=== PATIENT | male | born 1975 | race Caucasian/White ===

== ENCOUNTER 2019-05-20 08:50 | Day surgery (SDC) | payer BC ==
--- NOTE | 2019-05-20 07:55 | HP ---
DATE OF SURGERY: 05/20/2019 HISTORY OF PRESENT ILLNESS: The patient is a 43 year-old with no bloody stools, no change in bowel movements. He has history of polyps. Family history of colon cancer. He is in need of follow up screening colonoscopy. PAST MEDICAL HISTORY: Reflux. PAST SURGICAL HISTORY: Colonoscopy in the past. MEDICATIONS: Nexium. ALLERGIES: SULFA. FAMILY HISTORY: Diabetes, hypertension, colon cancer. SOCIAL HISTORY: He chews half a can per day, occasional alcohol use denies abuse. REVIEW OF SYSTEMS: Fourteen systems reviewed. No chest pain or palpitations. Otherwise as noted per admission assessment. PHYSICAL EXAMINATION: GENERAL: No acute distress. HEENT: Sclerae nonicteric. NECK: No JVD. CHEST: Equal excursion, nonlabored breathing. CVS: Regular rate and rhythm. ABDOMEN: Soft, nontender. No peritoneal signs. EXTREMITIES: No significant edema. NEURO: Alert, oriented, moving extremities symmetrically. No gross motor deficits noted. RECTAL: Deferred timed to endoscopy exam. IMPRESSION: History of polyps, family history of colon cancer, in need of screening colonoscopy. Risks and benefits explained in detail including but not limited to bleeding or infection, risk of bowel injury or perforation possibly requiring open procedure, risk of missed or nondiagnosis or incomplete exam possibly requiring barium enema, other studies or procedures, general risk of anesthesia or sedation, risk of bowel prep but not limited to. Consent was obtained, will proceed with outpatient follow up screening colonoscopy given his history of polyps and family history of colon cancer.
[2019-05-20] MEDS ORDERED: Lactated Ringers 1,000 ML IV SCH (09:30)
[2019-05-20] MEDS ORDERED: Ketamine HCl 50 MG/ML ONE (10:42)
[2019-05-20] MEDS ORDERED: DIPRIVAN 200 MG/20 ML IV ONE ×2 (10:42→10:52)
[2019-05-20 11:53] VITALS: PULSE 66; O2SAT 96
[2019-05-20 12:32] VITALS: BP 135/71
--- NOTE | 2019-05-21 12:11 | OP ---
SURGERY DATE/TIME: 05/20/2019 1049 PREOPERATIVE DIAGNOSIS: History of polyps, family history of colon cancer, need for follow up screening colonoscopy. POSTOPERATIVE DIAGNOSES: 1) Small polyp rectosigmoid. 2) Fair bowel prep. 3) Diverticulosis. 4) Small internal and external hemorrhoids. PROCEDURES: 1) Colonoscopy to terminal ileum. 2) Retrograde ileoscopy. 3) Hot biopsy rectosigmoid colon, small polyp removed biopsy forceps. 4) Withdrawal time 8 minutes. SURGEON: Dr. Sriram Montes. ANESTHESIA: MAC. ESTIMATED BLOOD LOSS: Minimal. INDICATIONS: As noted above. Risks and benefits explained in detail but not limited to and consent obtained. DESCRIPTION OF PROCEDURE AND FINDINGS: The patient is taken to the operating room. MAC anesthesia introduced. After official time out and no disagreement with planned procedure, digital rectal exam did not reveal any rectal masses. He did have some small internal and external hemorrhoids. Video colonoscope inserted and passed up through the slightly tortuous sigmoid, descending, transverse, ascending colon around to cecum. Appendiceal orifice is well visualized. The scope was able to be passed up the terminal ileum. Retrograde ileoscopy performed which was grossly unremarkable. The scope is slowly and carefully withdrawn over the next eight minutes. Prep overall was fair. There were no signs of any large polyps, masses or obstructing lesions. Back to the rectosigmoid colon about 20 cm or so was noted a very small 3.5 mm polyp versus hyperplastic polyp removed with hot biopsy forceps with brief bursts of cautery. Good hemostasis noted. Otherwise he had some mild diverticulosis. He had some small internal and external hemorrhoids. There were no signs of any large polyps, masses or obstructing lesions. I will see him back in the office next week or two to go over the biopsy results to determine ultimate follow up recommendations.
== END 2019-05-20 12:34 | disposition home or self-care (01) ==
LOC: SDC 08:50
PROVIDERS: ATTEND Surgery
DX: Z12.11 Encounter for screening for malignant neoplasm of colon (principal); K63.5 Polyp of colon; K62.1 Rectal polyp; Z86.010 Personal history of colon polyps; Z80.0 Family history of malignant neoplasm of digestive organs; K57.30 Diverticulosis of large intestine without perforation or abscess without bleeding; K64.4 Residual hemorrhoidal skin tags; K64.8 Other hemorrhoids
CPT/HCPCS: 88305; J2704

== ENCOUNTER 2019-12-05 23:22 | Emergency (ER) | payer BC ==
[2019-12-05] MEDS ORDERED: TORAdol 30 mg Injection IV ONE (23:46)
[2019-12-05] MEDS ORDERED: Compazine 10 MG/2 ML IV ONE (23:46)
--- NOTE | 2019-12-05 23:46 | ERPHSYRPT ---
- History of Present Illness Time Seen by Provider: 12/05/19 23:40 Source: patient Exam Limitations: no limitations Physician History: Patient is a 44-year-old male who presents to our ED with a headache for 4 days. Patient has been taking [id number] analgesics with no relief. Patient states that his blood pressure today was 166/98. Patient became very concerned and presented to our ED. He took aspirin approximately 2 hours prior to arrival. Patient also took Nexium. No other medications were ingested. Patient is not a smoker. However he chews tobacco. Patient states he is otherwise healthy. He does not follow-up with primary care doctor regularly. No associated chest pain or shortness of breath. No nausea vomiting or diaphoresis. Patient admits to chronic neck pain due to degenerative arthritis of the cervical spine. Patient advises that his orthopedic doctor advised neck surgery but patient declined. Patient attributes his intermittent headaches to his neck pain. Patient states when his chronic neck pain flares up his headaches tend to get worse. No associated numbness tingling or weakness. Patient voices no other complaints concerns at this time. Timing/Duration: day(s) (Days ago.) Quality: aching Head Pain Location: global Severity of Pain-Max: moderate Severity of Pain-Current: mild Recent Head Trauma: no recent headache/trauma, occasional headaches Modifying Factors: Improves With: rest, noise Associated Symptoms: neck pain, numbness in legs/feet, No confusion, No dizziness, No fatigue, No facial pain, No fever/chills, No flushing, No light- headedness, No nausea/vomiting, No nasal congestion, No nasal drainage, No rash, No sweating, No scotoma, No seizures, No sinus infection, No sensitive to light, No speech problems, No stiff neck, No trouble walking, No vision changes, No visual disturbance, No weakness Previous symptoms: same symptoms as today Allergies/Adverse Reactions: Sulfa (Sulfonamide Antibiotics) Allergy (Mild, Verified 12/05/19 23:31) Hives Home Medications: Esomeprazole Magnesium [Nexium] 40 mg PO DAILY 03/06/14 [History] Aspirin 81 mg PO DAILY 12/05/19 [History] Hx Tetanus, Diphtheria Vaccination/Date Given: No Hx Influenza Vaccination/Date Given: (fall 2013) Hx Pneumococcal Vaccination/Date Given: No - Review of Systems Constitutional: No Symptoms, No Fever, No Chills Eyes: No Symptoms Ears, Nose, & Throat: No Symptoms Respiratory: No Symptoms, No Cough, No Dyspnea Cardiac: No Symptoms, No Chest Pain, No Edema, No Syncope Abdominal/Gastrointestinal: No Symptoms, No Abdominal Pain, No Nausea, No Vomiting, No Diarrhea Genitourinary Symptoms: No Symptoms, No Dysuria Musculoskeletal: No Symptoms, No Back Pain, No Neck Pain Skin: No Symptoms, No Rash Neurological: No Symptoms, No Dizziness, No Focal Weakness, No Sensory Changes Psychological: No Symptoms Endocrine: No Symptoms Hematologic/Lymphatic: No Symptoms Immunological/Allergic: No Symptoms All Other Systems: Reviewed and Negative - Past Medical History Pertinent Past Medical History: Yes Neurological History: No Pertinent History ENT History: No Pertinent History Cardiac History: No Pertinent History Respiratory History: Asthma Endocrine Medical History: No Pertinent History Musculoskeletal History: No Pertinent History GI Medical History: GERD, Polyps History: No Pertinent History Psycho-Social History: No Pertinent History Male Reproductive Disorders: No Pertinent History - Past Surgical History Past Surgical History: Yes Neuro Surgical History: No Pertinent History Cardiac: No Pertinent History Respiratory: No Pertinent History Gastrointestinal: Other Genitourinary: No Pertinent History Musculoskeletal: No Pertinent History Male Surgical History: No Pertinent History Other Surgical History: colonoscopy - Social History Smoking Status: Former smoker How long have you smoked: 10 Exposure to second hand smoke: No Drug Use: none Patient Lives Alone: No - Nursing Vital Signs Nursing Vital Signs: Initial Vital Signs Temperature 98.3 F 12/05/19 23:37 Pulse Rate 86 12/05/19 23:37 Respiratory Rate 22 12/05/19 23:37 Blood Pressure 180/117 12/05/19 23:37 O2 Sat by Pulse Oximetry 99 12/05/19 23:37 Pain Scale Pain Intensity 0 - Physical Exam General Appearance: no apparent distress Eye Exam: PERRL/EOMI Ears, Nose, Throat Exam: normal ENT inspection, moist mucous membranes Neck Exam: normal inspection, supple, full range of motion, No meningismus Respiratory Exam: normal breath sounds, lungs clear Cardiovascular Exam: regular rate/rhythm, normal heart sounds Gastrointestinal/Abdominal Exam: soft, No tenderness, No distention Back Exam: normal inspection, normal range of motion Extremity Exam: normal inspection, normal range of motion Mental Status Exam: alert, oriented x 3, 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 Exam: normal speech, PERRL, No facial droop Coordination/Gait Exam: normal finger to nose, normal gait, normal cerebellar function, negative Romberg's sign, No abnormal gait, No ABN nose to finger (R) Motor/Sensory Exam: no motor deficit, no sensory deficit, no pronator drift Skin Exam: normal color, warm, dry, No rash SpO2 Interpretation: normal SpO2: 99 O2 Delivery: Room Air - Course Nursing assessment & vital signs reviewed: Yes EKG Interpreted by Me: RATE (82), Sinus Rhythm, NORMAL AXIS, NORMAL INTERVALS Ordered Tests: Active Orders 24 hr Category Date Time Status 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 Care 12/05/19 23:43 Active EKG-ER Only STAT Care 12/05/19 23:42 Active IV Insertion STAT Care 12/05/19 23:42 Active Pulse Oximetry (ED) STAT Care 12/05/19 23:42 Active CBC W DIFF Stat Lab 12/05/19 23:40 Completed CMP Stat Lab 12/05/19 23:40 Completed MAGNESIUM Stat Lab 12/05/19 23:40 Completed TROPONIN Q3H Lab 12/05/19 23:40 Completed TROPONIN Q3H Lab 12/06/19 02:45 Ordered TROPONIN Q3H Lab 12/06/19 05:45 Ordered TROPONIN Q3H Lab 12/06/19 08:45 Ordered TROPONIN Q3H Lab 12/06/19 11:45 Ordered Urine Triage Profile Stat Lab 12/05/19 23:40 Completed Medication Summary Discontinued Medications Generic Name Dose Route Start Last Admin Trade Name Freq PRN Reason Stop Dose Admin Ketorolac Tromethamine 30 mg 12/05/19 23:46 12/05/19 23:53 Toradol 30 Mg Injection IV 12/05/19 23:47 30 mg STAT ONE Administration Ketorolac Tromethamine Confirm 12/05/19 23:52 Toradol 30 Mg Injection Administered 12/05/19 23:53 Dose 30 mg .ROUTE .STK-MED ONE Prochlorperazine Edisylate 10 mg 12/05/19 23:46 12/05/19 23:53 Compazine 10 Mg/2 Ml IV 12/05/19 23:47 10 mg STAT ONE Administration Prochlorperazine Edisylate Confirm 12/05/19 23:52 Compazine 10 Mg/2 Ml Administered 12/05/19 23:53 Dose 10 mg .ROUTE .STK-MED ONE Lab/Rad Data: Laboratory Result Diagrams 12/05/19 23:40 12/05/19 23:40 Laboratory Results 12/05/19 12/05/19 12/05/19 Range/Units 23:40 23:40 23:40 WBC (4.0-10.5) K/mm3 RBC (4.1-5.6) M/mm3 Hgb (12.5-18.0) gm/dl Hct (42-50) % MCV (78-100) fl MCH (26-32) pg MCHC (32-36) g/dl RDW (11.5-14.0) % Plt Count (150-450) K/mm3 MPV (7.5-11.0) fl Gran % (36.0-66.0) % Eos # (Auto) (0-0.5) Absolute Lymphs (auto) (1.0-4.6) Absolute Monos (auto) (0.0-1.3) Lymphocytes % (24.0-44.0) % Monocytes % (0.0-12.0) % Eosinophils % (0.00-5.0) % Basophils % (0.0-0.4) % Absolute Granulocytes (1.4-6.9) Basophils # (0-0.4) Sodium 141 (137-145) mmol/L Potassium 3.6 (3.5-5.1) mmol/L Chloride 104 (98-107) mmol/L Carbon Dioxide 28 (22-30) mmol/L Anion Gap 12.7 (5-15) MEQ/L BUN 16 (9-20) mg/dL Creatinine 0.99 (0.66-1.25) mg/dL Estimated GFR > 60.0 ML/MIN Glucose 104 (74-106) mg/dL Calcium 9.5 (8.4-10.2) mg/dL Magnesium 2.2 (1.6-2.3) mg/dL Total Bilirubin 0.70 (0.2-1.3) mg/dL AST 37 (17-59) U/L ALT 41 (0-50) U/L Alkaline Phosphatase 73 (38-126) U/L Troponin I < 0.012 (0.000-0.034) ng/mL Serum Total Protein 7.6 (6.3-8.2) g/dL Albumin 4.5 (3.5-5.0) g/dL Urine Opiates Level NEGATIVE (NEGATIVE) Ur Methadone NEGATIVE (NEGATIVE) Urine Barbiturates NEGATIVE (NEGATIVE) Ur Phencyclidine (PCP) NEGATIVE (NEGATIVE) Urine Amphetamine NEGATIVE (NEGATIVE) U Benzodiazepine Level NEGATIVE (NEGATIVE) Urine Cocaine NEGATIVE (NEGATIVE) Urine Marijuana (THC) NEGATIVE (NEGATIVE) 12/05/19 Range/Units 23:40 WBC 7.5 (4.0-10.5) K/mm3 RBC 4.69 (4.1-5.6) M/mm3 Hgb 15.2 (12.5-18.0) gm/dl Hct 45.4 (42-50) % MCV 96.8 (78-100) fl MCH 32.4 H (26-32) pg MCHC 33.5 (32-36) g/dl RDW 12.9 (11.5-14.0) % Plt Count 194 (150-450) K/mm3 MPV 10.3 (7.5-11.0) fl Gran % 52.0 (36.0-66.0) % Eos # (Auto) 0.20 (0-0.5) Absolute Lymphs (auto) 2.49 (1.0-4.6) Absolute Monos (auto) 0.86 (0.0-1.3) Lymphocytes % 33.4 (24.0-44.0) % Monocytes % 11.5 (0.0-12.0) % Eosinophils % 2.7 (0.00-5.0) % Basophils % 0.4 (0.0-0.4) % Absolute Granulocytes 3.87 (1.4-6.9) Basophils # 0.03 (0-0.4) Sodium (137-145) mmol/L Potassium (3.5-5.1) mmol/L Chloride (98-107) mmol/L Carbon Dioxide (22-30) mmol/L Anion Gap (5-15) MEQ/L BUN (9-20) mg/dL Creatinine (0.66-1.25) mg/dL Estimated GFR ML/MIN Glucose (74-106) mg/dL Calcium (8.4-10.2) mg/dL Magnesium (1.6-2.3) mg/dL Total Bilirubin (0.2-1.3) mg/dL AST (17-59) U/L ALT (0-50) U/L Alkaline Phosphatase (38-126) U/L Troponin I (0.000-0.034) ng/mL Serum Total Protein (6.3-8.2) g/dL Albumin (3.5-5.0) g/dL Urine Opiates Level (NEGATIVE) Ur Methadone (NEGATIVE) Urine Barbiturates (NEGATIVE) Ur Phencyclidine (PCP) (NEGATIVE) Urine Amphetamine (NEGATIVE) U Benzodiazepine Level (NEGATIVE) Urine Cocaine (NEGATIVE) Urine Marijuana (THC) (NEGATIVE) - Progress Progress: improved Progress Note: 12/06/19 00:37 Patient reassessed. Headache resolved. Lab work-up negative. No evidence of endorgan damage. Repeat neuro exam within normal limits. Vitals stable. Blood pressure improved down to 152/94. Patient states is ready for discharge. No indication for further work-up at this time. Will discharge home. Patient agrees to follow-up with his primary care doctor within 48 hours for reevaluation. Blood Culture(s) Obtained: No Antibiotics given: No Counseled pt/family regarding: lab results, diagnosis, need for follow-up - Departure Departure Disposition: Home Clinical Impression: Hypertension, Headache Condition: Stable Critical Care Time: No Referrals: JANICE REDDY [Primary Care Provider] - Additional Instructions: Discharge/Care Plan CECIL ALMONTE was seen on 12/06/19 in the Emergency Room. The patient was counseled regarding Diagnosis,Lab results, Imaging studies, need for follow up and when to return to the Emergency Room. Prescriptions given: Discharge Note I have spoken with the patient and/or caregivers. I have explained the patient's condition, diagnosis and treatment plan based on the information available to me at this time. I have answered the patient's and/or caregiver's questions and addressed any concerns. The patient and/or caregivers have as good understanding of the patient's diagnosis, condition and treatment plan as can be expected at this point. The vital signs have been stable. The patient's condition is stable and appropriate for discharge from the emergency department. The patient will pursue further outpatient evaluation with the primary care physician or other designated or consulting physician as outlined in the discharge instructions. The patient and/or caregivers are agreeable to this plan of care and follow-up instructions have been explained in detail. The patient and/or caregivers have received these instruction. The patient/and or caregivers are aware that any significant change in condition or worsening of symptoms should prompt an immediate return to this or the closest emergency department or call 911.
[2019-12-05] MEDS ORDERED: Compazine 10 MG/2 ML ONE (23:52)
[2019-12-05] MEDS ORDERED: TORAdol 30 mg Injection ONE (23:52)
[2019-12-05 23:57] LABS: Absolute Neutrophil Ct (ANC) 3.87 (1.4-6.9); BASOPHIL % 0.4 % (0.0-0.4); Basophil (Absolute #) 0.03 (0-0.4); Eosinophil % 2.7 % (0.00-5.0); Hematocrit 45.4 % (42-50); Hemoglobin 15.2 gm/dl (12.5-18.0); Lymphocyte (Absolute #) 2.49 (1.0-4.6); Lymphocytes % 33.4 % (24.0-44.0); Mean Cell Volume 96.8 fl (78-100); Mean Corpuscular Hemoglobin 32.4 pg (26-32); Mean Corpuscular Hgb Concent. 33.5 g/dl (32-36); Mean Platelet Volume 10.3 fl (7.5-11.0); Monocyte (Absolute #) 0.86 (0.0-1.3); Monocytes % 11.5 % (0.0-12.0); Platelet Count 194 K/mm3 (150-450); Red Blood Count 4.69 M/mm3 (4.1-5.6); Red Cell Distribution Width 12.9 % (11.5-14.0); White Blood Count 7.5 K/mm3 (4.0-10.5)
[2019-12-06 00:08] LABS: ALBUMIN 4.5 g/dL (3.5-5.0); ALKALINE PHOSPHATASE 73 U/L (38-126); ANION GAP 12.7 MEQ/L (5-15); BLOOD UREA NITROGEN 16 mg/dL (9-20); CHLORIDE 104 mmol/L (98-107); Calcium 9.5 mg/dL (8.4-10.2); Carbon Dioxide 28 mmol/L (22-30); Creatinine 1 0.99 mg/dL (0.66-1.25); EST GLOMERULAR FILTRATION RATE > 60.0 ML/MIN; Glucose 104 mg/dL (74-106); MAGNESIUM 2.2 mg/dL (1.6-2.3); Potassium 3.6 mmol/L (3.5-5.1); SGOT/AST 37 U/L (17-59); SGPT/ALT 41 U/L (0-50); SODIUM 141 mmol/L (137-145); Total Protein 7.6 g/dL (6.3-8.2)
[2019-12-06 00:14] LABS: Amphetamine,Urine NEGATIVE (NEGATIVE); Barbiturate,Urine NEGATIVE (NEGATIVE); Benzodiazepine,Urine NEGATIVE (NEGATIVE); Cocaine,Urine NEGATIVE (NEGATIVE); Methadone,Urine NEGATIVE (NEGATIVE); Opiate,Urine NEGATIVE (NEGATIVE); PCP,Urine NEGATIVE (NEGATIVE); THC,Urine NEGATIVE (NEGATIVE)
[2019-12-06 00:45] VITALS: BP 133/85; PULSE 80; O2SAT 96
== END 2019-12-06 00:56 | disposition home or self-care (01) ==
LOC: ED 23:22
DX: R51 Headache (principal); I10 Essential (primary) hypertension
CPT/HCPCS: 36000; 36415; 80053; 80307; 83735; 84484; 85025; 93005; 93041; 94760; 96374; 99284; J1885

== ENCOUNTER 2022-07-18 11:32 | Day surgery (SDC) | payer BC ==
--- NOTE | 2022-07-18 09:57 | HP ---
DATE OF SURGERY: 07/18/2022 HISTORY OF PRESENT ILLNESS: A 47-year-old has a history of polyps, last colonoscopy three years ago had some dark stools and epigastric pain. He also needs upper endoscopy to evaluate for gastritis or peptic ulcer disease. PAST MEDICAL HISTORY: Hypertension. Polyps and ulcers in the past. Gastroesophageal reflux disease. Headaches. Heartburn. PAST SURGICAL HISTORY: Colonoscopy. MEDICATIONS: Allopurinol, lisinopril. ALLERGIES: SULFA. FAMILY HISTORY: Father with colon cancer. Negative for esophageal cancer. SOCIAL HISTORY: Chews tobacco. He denies smoking. Occasional alcohol use. REVIEW OF SYSTEMS: Fourteen systems reviewed. No chest pain or palpitations. Other systems negative or noncontributory as above and per preadmission questionnaire. PHYSICAL EXAMINATION: Height 6'1". BMI 42.54. Weight 230 pounds. GENERAL: No acute distress. HEENT: Sclerae nonicteric. NECK: No JVD. CHEST: Equal excursion, nonlabored breathing. CVS: Regular rate and rhythm. ABDOMEN: Soft. No peritoneal signs. EXTREMITIES: No cyanosis. No edema. NEURO: Alert, oriented, moving extremities symmetrically. RECTAL: Deferred timed to endoscopy exam. PSYCH: Appropriate mood and affect. SKIN: Dry. IMPRESSION: History of polyps needs follow up screening colonoscopy as there is question of epigastric pain also needs EGD to rule out peptic ulcer disease, gastritis or other etiology. Risks and benefits explained in detail including but not limited to bleeding or infection, risk of bowel injury or perforation possibly requiring other studies or procedures, risk of missed or nondiagnosis or incomplete exam possibly requiring barium enema other studies or procedures, general risk of anesthesia or sedation, risk of bowel prep but not limited to. Consent obtained. Will proceed with EGD and colonoscopy as an outpatient.
[2022-07-18] MEDS ORDERED: Lactated Ringers 1,000 ML IV SCH (12:30)
[2022-07-18] MEDS ORDERED: Versed 2 MG/2 ML Injection ONE (13:45)
[2022-07-18] MEDS ORDERED: DIPRIVAN 200 MG/20 ML IV ONE (13:45)
[2022-07-18] MEDS ORDERED: Xylocaine-Mpf 2% 5 Ml Vial ONE (13:45)
[2022-07-18 13:48] VITALS: BP 137/81; PULSE 75; O2SAT 96
--- NOTE | 2022-07-18 15:31 | OP ---
SURGERY DATE/TIME: 07/18/2022 1246 PREOPERATIVE DIAGNOSES: 1) Polyp, need for screening colonoscopy. 2) History of some epigastric pain and dark stools, need for upper endoscopy to evaluate for gastritis, peptic ulcer disease. POSTOPERATIVE DIAGNOSES: 1) ASA Class II. 2) Mild prepyloric ulcer. 3) Mild gastritis. 4) Borderline early inflammation distal esophagus at the gastroesophageal junction versus normal variation. 5) Diverticulosis. 6) Small early polyp versus hyperplastic lesion sigmoid colon and transverse colon. 7) Good bowel prep. PROCEDURES: 1) EGD with cold biopsy of antrum to evaluate for Helicobacter pylori. 2) Cold biopsy distal esophagus at the gastroesophageal junction. 3) Colonoscopy to cecum. 4) Hot biopsy polypectomy small transverse colon early polyp versus hyperplastic lesion. 5) Hot biopsy polypectomy small sigmoid colon early polyp versus hyperplastic lesion. SURGEON: Dr. Sriram Montes. ANESTHESIA: MAC. ESTIMATED BLOOD LOSS: Minimal. INDICATIONS: As noted above. Risks and benefits explained in detail and not limited to and consent obtained. DESCRIPTION OF PROCEDURE AND FINDINGS: The patient is taken to the operating room. MAC anesthesia introduced. After official time out and no disagreement with planned procedure, bite block positioned. Video gastroscope easily passed down the esophagus to the patent pylorus to the third portion of the duodenum. Third, second and first portions of duodenum fairly unremarkable. No signs of any ulcers or inflammation. Back in the stomach he did have some gastritis. There was a small ulcer in the prepyloric area. A cold biopsy is taken to evaluate for Helicobacter pylori. Good hemostasis noted. On retroflex the gastroesophageal junction snug against the scope. The scope is straightened. The gastroesophageal junction about 40 cm. There was just a little borderline plus or minus early inflammation in distal esophagus gastroesophageal junction possible early esophagitis versus normal variation. Cold biopsy is taken from both the stomach and distal esophagus. The scope is withdrawn. The remainder of the esophagus grossly unremarkable. The patient tolerated this part of the procedure well. There were no immediate complications. It was felt his epigastric pain likely had been from the gastritis and small ulcer. A script for Protonix was given to the patient. Attention is then turned to colonoscopy. Digital rectal exam did not reveal any rectal masses. Video colonoscope inserted and passed up the tortuous sigmoid, descending, transverse, ascending colon around to the cecum. Appendiceal orifice and valve well visualized and photo documented. Prep overall was good, a little bit of some liquidy stool suctioned and irrigated as clear as possible. The scope is slowly and carefully withdrawn over the next nine minutes. No signs of any large polyps, masses or obstructing lesions. There was a small early polyp in the distal transverse colon removed with hot biopsy polypectomy. Good hemostasis noted. Otherwise he had some left colon small diverticula. He did have small early polyp versus hyperplastic lesion in the sigmoid colon removed with hot biopsy polypectomy. Good hemostasis noted. The scope is withdrawn. He tolerated the procedure well. There were no immediate complications. There was no family available to discuss the findings with at this time.
== END 2022-07-18 12:50 | disposition home or self-care (01) ==
LOC: SDC 11:32
PROVIDERS: ATTEND Surgery
DX: Z09 Encounter for follow-up examination after completed treatment for conditions other than malignant neoplasm (principal); Z86.010 Personal history of colon polyps; R10.13 Epigastric pain; K92.1 Melena; D12.5 Benign neoplasm of sigmoid colon; D12.3 Benign neoplasm of transverse colon; K25.9 Gastric ulcer, unspecified as acute or chronic, without hemorrhage or perforation; K29.70 Gastritis, unspecified, without bleeding; K57.30 Diverticulosis of large intestine without perforation or abscess without bleeding; K20.90 Esophagitis, unspecified without bleeding
CPT/HCPCS: 88305; J2250; J2704

== ENCOUNTER 2022-10-03 09:08 | Day surgery (SDC) | payer BC ==
--- NOTE | 2022-10-03 08:10 | HP ---
DATE OF SURGERY: 10/03/2022 HISTORY OF PRESENT ILLNESS: The patient is a 47-year-old had polyps in the past, had some dark stools and epigastric pain in the past. He is need of EGD and colonoscopy. Family history his father had colon cancer. PAST MEDICAL HISTORY: Hypertension, migraine headache, hemorrhoid, ulcer and gout in the past. PAST SURGICAL HISTORY: Colonoscopy. MEDICATIONS: Allopurinol, lisinopril. ALLERGIES: SULFA. FAMILY HISTORY: Colon cancer. SOCIAL HISTORY: No smoking. Occasional alcohol use. REVIEW OF SYSTEMS: Fourteen systems reviewed. No chest pain or palpitations. Other systems negative or noncontributory as above and per preadmission questionnaire. PHYSICAL EXAMINATION: VITALS: Height 6'1". BMI 43.5. GENERAL: No acute distress. HEENT: Sclerae nonicteric. EOMI. Oropharynx mucous membranes moist. NECK: No JVD. CHEST: Equal excursion, nonlabored breathing. CVS: Regular rate and rhythm. ABDOMEN: Soft. Mild tenderness epigastrium. No peritoneal signs. EXTREMITIES: No cyanosis. NEURO: Alert, oriented, moving extremities symmetrically. RECTAL: Deferred timed to endoscopy exam. PSYCH: Appropriate mood and affect. SKIN: Dry. IMPRESSION: History of polyps. He is in need of follow up screening colonoscopy. Question of melena and epigastric pain. He also needs upper endoscopy to rule out peptic ulcer disease, gastritis or other etiology. He was shown the risk sheet, explained the procedure in detail but not limited to bleeding or infection, risk of bowel injury or perforation, risk of missed or nondiagnosis or incomplete exam, possibly requiring barium enema, barium swallow, other studies or procedures. General risk of anesthesia or sedation, risk of bowel prep but not limited to, consent obtained. Will proceed with outpatient EGD and colonoscopy.
[~2022-10-03 09:08] MED LIST: Lactated Ringers 1,000 ML IV SCH
[2022-10-03 09:35] VITALS: O2SAT 96
[2022-10-03] MEDS ORDERED: Lactated Ringers 1,000 ML IV ONE (09:44)
[2022-10-03] MEDS ORDERED: Versed 2 MG/2 ML Injection ONE (11:26)
[2022-10-03] MEDS ORDERED: Xylocaine-Mpf 2% 5 Ml Vial ONE (11:26)
[2022-10-03] MEDS ORDERED: DIPRIVAN 200 MG/20 ML IV ONE (11:26)
[2022-10-03 12:24] VITALS: BP 152/98; PULSE 60
--- NOTE | 2022-10-04 07:44 | OP ---
SURGERY DATE/TIME: 10/03/2022 1129 PREOPERATIVE DIAGNOSIS: Prior peptic ulcer needs follow up to evaluate for healing. POSTOPERATIVE DIAGNOSES: 1) Healed ulcer area. 2) Minimal to mild gastritis. PROCEDURES: 1) EGD with cold biopsy of antrum to evaluate for Helicobacter pylori. 2) ASA Class III. SURGEON: Dr. Sriram Montes. ANESTHESIA: MAC. ESTIMATED BLOOD LOSS: Minimal. INDICATIONS: As noted above. He had prior EGD and colonoscopy a few weeks ago and had an ulcer, needed follow up upper endoscopy to evaluate healing of the ulcer site. Risks and benefits explained in detail and not limited to and consent obtained. DESCRIPTION OF PROCEDURE AND FINDINGS: The patient is taken to the endoscopy room. MAC anesthesia introduced. After official time out and no disagreement with planned procedure, a bite block positioned. Video gastroscope easily passed down the esophagus around to the junction of the third and fourth portion of the duodenum. The duodenum is grossly unremarkable in the area where he had the ulcer. The scope is pulled back into the antrum. Prior ulcer site appeared to be healed. He did have a little bit of erythema and congestion, some minimal to mild gastritis. Cold biopsy is taken to evaluate for Helicobacter pylori. Good hemostasis noted. There was inflammatory raised area that was also biopsied and sent as a specimen. Otherwise, the scope pulled back in the gastroesophageal junction. Z-line was fairly crisp. No signs of any Jade's or any significant appearing esophagitis. The scope is withdrawn. The patient tolerated the procedure well. There were no immediate complications.
== END 2022-10-03 12:35 | disposition home or self-care (01) ==
LOC: SDC 09:08
PROVIDERS: ATTEND Surgery
DX: Z87.11 Personal history of peptic ulcer disease (principal); Z80.0 Family history of malignant neoplasm of digestive organs; K29.70 Gastritis, unspecified, without bleeding; K26.9 Duodenal ulcer, unspecified as acute or chronic, without hemorrhage or perforation
CPT/HCPCS: J2250; J2704